=== PATIENT | male | born 1980 | race Two or more races ===

== ENCOUNTER 2017-08-28 17:52 | Emergency (ER) | payer BC ==
[~2017-08-28] VITALS: Ht 170.2 cm; Wt 63.5 kg
[~2017-08-28 17:52] MED LIST: CYCLOBENZAPRINE10 MG PO; IBUPROFEN600 MG PO; LAMICTAL100 MG PO; NORCO 10/3251 EA ORAL; NORCO 5-325 TA1 EAC1 ORAL; NORCO 5-325 TA1 EACH ORAL; NORCO 5-325 TA1 EACH PO; SILVADENE CREAM50 GM TOP; TRAMADOL HCL50 MG ORAL; VALIUM5 MG PO; VICODIN 5-5001 EACH PO
[2017-08-28 18:32] VITALS: BP 117/69
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
[2017-08-28] MEDS ORDERED: ROBAXIN-750750 MG PO (19:03)
[2017-08-28] MEDS ORDERED: IBUPROFEN600 MG ORAL (19:03)
[2017-08-28 19:06] VITALS: BP 117/69
== END 2017-08-28 19:24 | disposition home or self-care (01) ==
LOC: EMR 18:15
DX: S29.012A Strain of muscle and tendon of back wall of thorax, initial encounter (principal); S16.1XXA Strain of muscle, fascia and tendon at neck level, initial encounter; S63.601A Unspecified sprain of right thumb, initial encounter; V49.40XA Driver injured in collision with unspecified motor vehicles in traffic accident, initial encounter; Y92.410 Unspecified street and highway as the place of occurrence of the external cause
CPT/HCPCS: 99284

== ENCOUNTER 2018-04-02 18:34 | Emergency (ER) | payer BC, MEDICAID ==
[~2018-04-02] VITALS: Ht 170.2 cm; Wt 62.6 kg
[~2018-04-02 18:34] MED LIST changes: +IBUPROFEN600 MG ORAL; +ROBAXIN-750750 MG PO
[2018-04-02 18:58] VITALS: BP 107/76
--- NOTE | 2018-04-02 19:27 | Emergency Room Report ---
History of Present Illness General Chief Complaint: Medication Refill Source: Patient Present Illness HPI 38-year-old male presents to the emergency department requesting medication refill for tramadol. Patient reports that he is prescribed this medication to be taken 3 times daily for knee pain for which she needs ACO surgery performed on. Patient states that his describing doctor went on vacation 2 months ago and he has been unable to contact them for refills. Patient nicely trauma or fall he reports that if he doesn't get his medications that he usually experiences diarrhea. Denies fevers, chills, erythema or swelling of the affected joint. currently pt. is having 2/10 in severity pain however he states his pain does become 9/10 in severity. Allergies: Coded Allergies: No Known Allergies (Unverified , 05/31/12) Patient History Past Surgical History: unable to obtain Pertinent Family History: none Reviewed Nursing Documentation: PMH: Agreed; PSxH: Agreed Nursing Documentation-PMH Past Medical History: No History, Except For Hx Neurological Problems: Yes Hx Seizures: Yes Review of Systems All Other Systems: negative except mentioned in HPI Physical Exam Vital Signs Date Time Temp Pulse Resp B/P (MAP) Pulse Ox O2 Delivery O2 Flow Rate FiO2 04/02/18 18:51 97.8 102 18 107/76 98 Room Air 97.9 Sp02 EP Interpretation: reviewed, normal General Appearance: no apparent distress, alert, GCS 15, non-toxic Head: normocephalic, atraumatic ENT: hearing grossly normal, normal voice Neck: full range of motion Respiratory: lungs clear, normal breath sounds, speaking full sentences Cardiovascular #1: regular rate, rhythm Musculoskeletal: back normal, gait/station normal, normal range of motion, non- tender Neurologic: alert, oriented x3, responsive, motor strength/tone normal, sensory intact, normal gait, speech normal, grossly normal Psychiatric: judgement/insight normal Skin: normal color, no rash, warm/dry, well hydrated Medical Decision Making PA Attestation Dr. bullock is my supervising Physician whom patient management has been discussed with. Diagnostic Impression: Primary Impression: Encounter for medication refill ER Course 38-year-old male presents to the emergency department requesting medication refill for tramadol. Patient reports that he is prescribed this medication to be taken 3 times daily for knee pain for which she needs ACO surgery performed on. Patient states that his describing doctor went on vacation 2 months ago and he has been unable to contact them for refills. Patient nicely trauma or fall he reports that if he doesn't get his medications that he usually experiences diarrhea. Denies fevers, chills, erythema or swelling of the affected joint. currently pt. is having 2/10 in severity pain however he states his pain does become 9/10 in severity. Ddx considered but are not limited to: drug seeking, OD, opiate withdraw, exacerbation of chronic pain, new MSK injury just to name a few. Vital signs: are WNL, pt. is afebrile H&PE are most consistent with need for medication refill. ORDERS: none required at this time, the diagnosis is clinical ED INTERVENTIONS: None required at this time. - Tramadol PO here - I discussed with this patient that I will treat his pain here while he is in the emergency department however will not be providing medication refill as he needs to obtain these refills from his primary prescribing provider. I also discussed with this patient that on review of his cheers report it shows he just recently filled a 30 day prescription on the eighth of this month which was 10 days ago. pt. was given rx's for w/d symptomatic management. Bentyl, and Lidoderm patches for pain relief. DISCHARGE: At this time pt. is stable for d/c to home. Will provide printed patient care instructions, and any necessary prescriptions. Care plan and follow up instructions have been discussed with the patient prior to discharge. Last Vital Signs Date Time Temp Pulse Resp B/P (MAP) Pulse Ox O2 Delivery O2 Flow Rate FiO2 04/02/18 18:58 97.9 18 107/76 98 Room Air 97.9 04/02/18 18:51 102 Disposition: HOME, SELF-CARE Condition: Stable Scripts Dicyclomine Hcl* (DICYCLOMINE HCL*) 10 Mg Capsule 10 MG PO QID, #20 CAP Prov: Zeenat Simpson 04/02/18 Diclofenac Sod* (VOLTAREN*) 75 Mg Tablet.dr 75 MG ORAL THREE TIMES A DAY for 7 Days, #21 TAB Prov: Zeenat Simpson 04/02/18 Lidocaine (Lidoderm) 1 Each Adh..patch 1 PATCH TOPIC DAILY, #30 PATCH 0 Refills Patch(es) may remain in place for up to 12 hours in any 24-hour period. Prov: Zeenat Simpson 04/02/18 Referrals: NON PHYSICIAN (PCP) Patient Instructions: Medicine Refill at the Emergency Department Additional Instructions: Take medications as directed. Follow up with a Primary Care Provider in 3-5 days, even if your symptoms have resolved. --Please review list of primary care clinics, if you do not already have a primary care provider Return sooner to ED if new symptoms occur, or current symptoms become worse. - Please note that this Emergency Department Report was dictated using [employer] ux engineer technology software, occasionally this can lead to erroneous entry secondary to interpretation by the dictation equipment. Zeenat Simpson Apr 02, 2018 19:27
[2018-04-02] MEDS ORDERED: traMADol 50mg tab ORAL ONE (19:30)
[2018-04-02] MEDS ORDERED: DICLOFENAC SODI75 MG ORAL (19:30)
[2018-04-02] MEDS ORDERED: DICYCLOMINE HCL10 MG PO (19:30)
[2018-04-02] MEDS ORDERED: LIDODERM700 M1 TOPIC (19:30)
[2018-04-02 19:36] VITALS: BP 107/76
== END 2018-04-02 19:36 | disposition home or self-care (01) ==
LOC: EMR 19:10
DX: Z76.0 Encounter for issue of repeat prescription (principal); M25.569 Pain in unspecified knee
CPT/HCPCS: 99283